=== PATIENT | female | born 1960 | race African-American/Black ===

== ENCOUNTER 2021-07-18 00:10 | Inpatient (IN) ==
[2021-07-18 04:22] LABS: Basophils % 0.1 % (0.0-0.8); Eosinophils # 0.1 10*3/uL (0.0-0.87); Hematocrit 32.9 VOL% (35.7-47.0); Hemoglobin 10.9 GM/DL (12.0-16.0); Immature Granulocytes % 0.7 %; Lymphocytes # 1.8 10*3/uL (1.4-4.0); Lymphocytes % 13.2 % (21.3-54.2); Mean Corpuscular HGB Conc 33.1 GM/DL (32-36); Mean Platelet Volume 9.5 FL (9.6-12.0); Monocytes % 6.4 % (1.7-12.7); Neutrophils % 78.6 % (38.7-73.9); Platelet Count 228 T/CUMM (130-400); Red Blood Count 4.11 MC/CUMM (3.8-5.5); Red Cell Distribution Width 12.7 % (9.3-17.3); White Blood Count 13.8 T/CUMM (4-12)
[2021-07-18 04:49] LABS: Albumin 4.1 G/DL (3.4-5.0); Bilirubin,Total 0.4 MG/DL (0.20-1.00); Calcium 9.7 MG/DL (8.5-10.1); Osmolality,Calculated 279.5 MOS/KG (273-304); Potassium 3.8 MMOL/L (3.5-5.1); Total Protein 8.3 G/DL (6.4-8.2)
[2021-07-18 11:41] LABS: Bacteria,Urine Occasional /HPF (Few); Bilirubin,Urine Negative (Negative); Blood, Urine Negative (Negative); Glucose,Urine (UA) Negative (Negative); Ketones,Urine Negative (Negative); Mucus,Urine Occasional /LPF (Occasional); Nitrite,Urine Negative (Negative); Protein,Urine Negative; RBC,Urine 1 /HPF (0-4); Squamous Epithelial Cell,Urine Occasional /HPF (0-10); Urine Appearance CLEAR (Clear); Urine Color Yellow (Yellow); Urine Specific Gravity 1.012 (1.001-1.035); Urine Urobilinogen < 2.0 EU/DL (<2.0)
[2021-07-18] MEDS ORDERED: SODIUM CHLORIDE 0.9% 1,000 ML IV STA (11:52)
[2021-07-18] MEDS ORDERED: GLUCAGON 1 MG VIAL IM PRN (14:53)
[2021-07-18] MEDS ORDERED: ONDANSETRON 4 MG/2 ML VIAL IV PRN (14:53)
[2021-07-18] MEDS ORDERED: DEXTROSE 50% 25 GM/50 ML SYRINGE IV PRN (14:53)
[2021-07-18] MEDS ORDERED: ACETAMINOPHEN 325 MG TABLET PO PRN (14:53)
[2021-07-18] MEDS ORDERED: MORPHINE 2 MG/1 ML SYRINGE IV STA (15:11)
[2021-07-18] MEDS: LACTATED RINGERS 1,000 ML IV SCH ×2 (15:23→23:30)
[2021-07-18] MEDS ORDERED: PANTOPRAZOLE 40 MG VIAL IV SCH (15:30)
[2021-07-18] MEDS: CIPROFLOXACIN INJ 400 MG/200 ML PREMIX IV SCH (16:39)
[2021-07-18] MEDS: metroNIDAZOLE INJ 500 MG/100 ML PREMIX IV SCH (17:25)
[2021-07-18 19:42] LABS: Hematocrit 29.9 VOL% (35.7-47.0); Hemoglobin 9.8 GM/DL (12.0-16.0)
[2021-07-18 19:51] LABS: PT Patient Result 11.4 SECS (10.5-12.0)
[2021-07-18] MEDS: INSULIN LISPRO 100 UNIT/ML SUBCUT SCH (23:37)
[2021-07-19] MEDS: metroNIDAZOLE INJ 500 MG/100 ML PREMIX IV SCH ×3 (00:28→18:21)
[2021-07-19] MEDS ORDERED: INFLUENZA VIRUS VACCINE 0.5 ML SYRINGE IM ONE (00:37)
[2021-07-19 00:43] LABS: Hematocrit 28.4 VOL% (35.7-47.0); Hemoglobin 9.3 GM/DL (12.0-16.0)
[2021-07-19] MEDS: CIPROFLOXACIN INJ 400 MG/200 ML PREMIX IV SCH ×2 (04:13→15:55)
[2021-07-19 06:10] LABS: Basophils % 0.3 % (0.0-0.8); Eosinophils # 0.2 10*3/uL (0.0-0.87); Eosinophils % 1.8 % (0.00-10.9); Hematocrit 29.9 VOL% (35.7-47.0); Hemoglobin 9.4 GM/DL (12.0-16.0); Immature Granulocytes % 0.6 %; Immature Granulocytes Absolute 0.07 #; Lymphocytes # 1.4 10*3/uL (1.4-4.0); Lymphocytes % 13.2 % (21.3-54.2); Mean Corpuscular HGB Conc 31.4 GM/DL (32-36); Mean Corpuscular Volume 82.4 FL (87-102); Mean Platelet Volume 9.8 FL (9.6-12.0); Monocytes % 6.7 % (1.7-12.7); Neutrophils % 77.4 % (38.7-73.9); Platelet Count 202 T/CUMM (130-400); Red Blood Count 3.63 MC/CUMM (3.8-5.5); White Blood Count 10.9 T/CUMM (4-12)
[2021-07-19 06:45] LABS: Bilirubin,Total 1.1 MG/DL (0.20-1.00); Calcium 8.7 MG/DL (8.5-10.1); Osmolality,Calculated 277.5 MOS/KG (273-304); Potassium 3.5 MMOL/L (3.5-5.1)
[2021-07-19] MEDS: INSULIN LISPRO 100 UNIT/ML SUBCUT SCH ×4 (07:33→21:43)
[2021-07-19 08:37] LABS: Hematocrit 30.6 VOL% (35.7-47.0); Hemoglobin 9.8 GM/DL (12.0-16.0)
[2021-07-19] MEDS: PANTOPRAZOLE 40 MG VIAL IV SCH ×2 (09:01→21:43)
[2021-07-19] MEDS: LACTATED RINGERS 1,000 ML IV SCH ×3 (09:46→22:39)
[2021-07-19] MEDS: POLYETHYLENE GLYCOL POWDER 17 GM PACK PO SCH (13:56)
[2021-07-19] MEDS: MESALAMINE 800 MG TABLET PO SCH ×2 (15:55→21:42)
[2021-07-19 16:40] LABS: Hematocrit 30.3 VOL% (35.7-47.0); Hemoglobin 9.7 GM/DL (12.0-16.0)
[2021-07-19] MEDS ORDERED: ROSUVASTATIN 10 MG TABLET PO SCH (21:00)
[2021-07-19] MEDS: HYDROCORTISONE ENEMA 100 MG/60 ML BOTTLE RECTAL SCH (21:44)
[2021-07-20] MEDS: metroNIDAZOLE INJ 500 MG/100 ML PREMIX IV SCH ×3 (01:57→18:12)
[2021-07-20] MEDS: CIPROFLOXACIN INJ 400 MG/200 ML PREMIX IV SCH ×2 (04:02→16:44)
[2021-07-20 06:51] LABS: Basophils % 0.2 % (0.0-0.8); Eosinophils # 0.1 10*3/uL (0.0-0.87); Eosinophils % 1.4 % (0.00-10.9); Hematocrit 26.4 VOL% (35.7-47.0); Hemoglobin 8.4 GM/DL (12.0-16.0); Immature Granulocytes % 0.6 %; Immature Granulocytes Absolute 0.06 #; Lymphocytes # 1.7 10*3/uL (1.4-4.0); Lymphocytes % 16.1 % (21.3-54.2); Mean Corpuscular HGB Conc 31.8 GM/DL (32-36); Mean Corpuscular Volume 80.5 FL (87-102); Mean Platelet Volume 10.1 FL (9.6-12.0); Monocytes % 5.9 % (1.7-12.7); Neutrophils % 75.8 % (38.7-73.9); Platelet Count 187 T/CUMM (130-400); Red Blood Count 3.28 MC/CUMM (3.8-5.5); Red Cell Distribution Width 12.8 % (9.3-17.3); White Blood Count 10.3 T/CUMM (4-12)
[2021-07-20 07:08] LABS: Calcium 8.9 MG/DL (8.5-10.1); Osmolality,Calculated 276.7 MOS/KG (273-304); Potassium 3.5 MMOL/L (3.5-5.1)
[2021-07-20] MEDS: INSULIN LISPRO 100 UNIT/ML SUBCUT SCH ×4 (07:57→21:05)
[2021-07-20] MEDS: MESALAMINE 800 MG TABLET PO SCH ×3 (09:48→21:05)
[2021-07-20] MEDS: PANTOPRAZOLE 40 MG VIAL IV SCH ×2 (09:48→21:05)
[2021-07-20] MEDS: POLYETHYLENE GLYCOL POWDER 17 GM PACK PO SCH (09:49)
[2021-07-20] MEDS: LACTATED RINGERS 1,000 ML IV SCH ×4 (10:01→21:09)
[2021-07-20] MEDS: HYDROCORTISONE ENEMA 100 MG/60 ML BOTTLE RECTAL SCH ×2 (10:02→21:05)
[2021-07-21] MEDS: metroNIDAZOLE INJ 500 MG/100 ML PREMIX IV SCH ×2 (00:51→09:53)
[2021-07-21] MEDS: CIPROFLOXACIN INJ 400 MG/200 ML PREMIX IV SCH (03:30)
[2021-07-21 06:02] LABS: Basophils % 0.3 % (0.0-0.8); Eosinophils # 0.3 10*3/uL (0.0-0.87); Eosinophils % 2.9 % (0.00-10.9); Hematocrit 27.8 VOL% (35.7-47.0); Hemoglobin 8.9 GM/DL (12.0-16.0); Immature Granulocytes Absolute 0.09 #; Lymphocytes # 1.8 10*3/uL (1.4-4.0); Mean Platelet Volume 9.7 FL (9.6-12.0); Monocytes % 6.4 % (1.7-12.7); Neutrophils % 69.4 % (38.7-73.9); Platelet Count 194 T/CUMM (130-400); Red Blood Count 3.43 MC/CUMM (3.8-5.5); Red Cell Distribution Width 12.7 % (9.3-17.3); White Blood Count 8.8 T/CUMM (4-12)
[2021-07-21 06:19] LABS: Calcium 8.7 MG/DL (8.5-10.1); Osmolality,Calculated 281.4 MOS/KG (273-304); Potassium 3.7 MMOL/L (3.5-5.1)
[2021-07-21] MEDS: LACTATED RINGERS 1,000 ML IV SCH ×2 (09:49→13:46)
[2021-07-21] MEDS: PANTOPRAZOLE 40 MG VIAL IV SCH (09:50)
[2021-07-21] MEDS: MESALAMINE 800 MG TABLET PO SCH ×2 (09:50→15:39)
[2021-07-21] MEDS: POLYETHYLENE GLYCOL POWDER 17 GM PACK PO SCH (09:51)
[2021-07-21] MEDS: INSULIN LISPRO 100 UNIT/ML SUBCUT SCH ×2 (09:53→11:35)
[2021-07-21] MEDS: HYDROCORTISONE ENEMA 100 MG/60 ML BOTTLE RECTAL SCH (09:54)
[2021-07-21 11:40] VITALS: BP 138/59
== END 2021-07-21 16:54 | disposition home or self-care (01) | DRG 918 ==
LOC: SUATTDRO → N.ED 00:10 → SUATTDRO 14:53 → N.EDINP 14:53 → N.3E 23:47
PROVIDERS: ADMIT Internal Medicine; ATTEND Internal Medicine

== ENCOUNTER 2021-07-24 20:19 | Observation (INO) ==
[2021-07-25] MEDS ORDERED: DEXTROSE 5% NACL 0.45% 1,000 ML IV SCH (01:30)
[2021-07-25 01:55] LABS: Basophils # 0.1 10*3/uL (0.0-0.2); Basophils % 0.6 % (0.0-0.8); Eosinophils # 0.1 10*3/uL (0.0-0.87); Eosinophils % 1.7 % (0.00-10.9); Hematocrit 29.2 VOL% (35.7-47.0); Hemoglobin 9.4 GM/DL (12.0-16.0); Immature Granulocytes % 0.6 %; Immature Granulocytes Absolute 0.05 #; Lymphocytes # 1.8 10*3/uL (1.4-4.0); Lymphocytes % 21.3 % (21.3-54.2); Mean Corpuscular HGB Conc 32.2 GM/DL (32-36); Mean Corpuscular Volume 80.4 FL (87-102); Mean Platelet Volume 9.3 FL (9.6-12.0); Monocytes % 9.1 % (1.7-12.7); Neutrophils % 66.7 % (38.7-73.9); Platelet Count 280 T/CUMM (130-400); Red Blood Count 3.63 MC/CUMM (3.8-5.5); White Blood Count 8.3 T/CUMM (4-12)
[2021-07-25 02:16] LABS: Calcium 8.7 MG/DL (8.5-10.1); Osmolality,Calculated 273.5 MOS/KG (273-304)
[2021-07-25] MEDS ORDERED: hydrALAZINE 20 MG/1 ML VIAL IV PRN (03:02)
[2021-07-25] MEDS ORDERED: DEXTROSE 50% 25 GM/50 ML SYRINGE IV PRN (03:02)
[2021-07-25] MEDS ORDERED: ONDANSETRON 4 MG/2 ML VIAL IV PRN (03:02)
[2021-07-25] MEDS ORDERED: GLUCAGON 1 MG VIAL IM PRN (03:02)
[2021-07-25] MEDS: INSULIN REGULAR 100 UNIT/ML SUBCUT SCH ×2 (10:56→15:41)
[2021-07-25] MEDS ORDERED: MESALAMINE 800 MG TABLET PO SCH (15:00)
[2021-07-25 15:56] VITALS: BP 144/67
[2021-07-25] MEDS ORDERED: ENOXAPARIN 40 MG/0.4 ML SYRINGE SUBCUT SCH (21:00)
== END 2021-07-25 17:10 | disposition home or self-care (01) ==
LOC: N.ED 20:19 → N.EDINP 20:19 → N.3E 07-25 05:01
PROVIDERS: ADMIT Internal Medicine Geriatric Medicine; ATTEND Internal Medicine Geriatric Medicine